=== PATIENT | female | born 1945 | race Caucasian/White ===

== ENCOUNTER → 2016-11-16 | Outpatient (CLI) | payer MEDICARE | END | disposition home or self-care (01) | LOC: PCVCCLINIC 11:10 | PROVIDERS: ATTEND Internal Medicine Cardiovascular Disease | DX: I87.2 Venous insufficiency (chronic) (peripheral) (principal); I71.4 Abdominal aortic aneurysm, without rupture; I48.0 Paroxysmal atrial fibrillation; I25.10 Atherosclerotic heart disease of native coronary artery without angina pectoris; I77.89 Other specified disorders of arteries and arterioles; I10 Essential (primary) hypertension; F17.200 Nicotine dependence, unspecified, uncomplicated; E78.1 Pure hyperglyceridemia; Z90.49 Acquired absence of other specified parts of digestive tract; Z90.710 Acquired absence of both cervix and uterus; Z79.82 Long term (current) use of aspirin; Z79.899 Other long term (current) drug therapy; Z88.5 Allergy status to narcotic agent | CPT/HCPCS: 80061; 93005; G0463; 85610 ==

== ENCOUNTER → 2017-02-12 | Outpatient (CLI) | payer MEDICARE ==
--- NOTE | 2017-02-12 13:50 | PCVCIMAG ---
EXAM: BILATERAL LOWER EXTREMITY ARTERIAL DUPLEX INDICATION: Peripheral Arterial Disease. Leg pain. FINDINGS: Right Leg: Satisfactory arterial waveforms throughout the common/profunda/superficial femoral, popliteal, anterior tibial, peroneal, and posterior tibial arteries. No flow limiting stenosis seen. Left Leg: Satisfactory arterial waveforms throughout the common/profunda/superficial femoral, popliteal, anterior tibial, peroneal, and posterior tibial arteries. No flow limiting stenosis seen. IMPRESSION: No flow limiting stenosis in the right lower extremity. No flow limiting stenosis in the left lower extremity. LOC:[id number]
== END | disposition home or self-care (01) ==
LOC: PCVCIMAG 09:34
PROVIDERS: ATTEND Internal Medicine Cardiovascular Disease
DX: I73.9 Peripheral vascular disease, unspecified (principal); I10 Essential (primary) hypertension; E78.5 Hyperlipidemia, unspecified; I25.10 Atherosclerotic heart disease of native coronary artery without angina pectoris; R09.89 Other specified symptoms and signs involving the circulatory and respiratory systems; I48.0 Paroxysmal atrial fibrillation
CPT/HCPCS: 93925

== ENCOUNTER → 2017-06-13 | Outpatient (CLI) | payer MEDICARE | END | disposition home or self-care (01) | LOC: PCVCCLINIC 13:16 | DX: I25.10 Atherosclerotic heart disease of native coronary artery without angina pectoris (principal); I71.4 Abdominal aortic aneurysm, without rupture; I48.0 Paroxysmal atrial fibrillation; I10 Essential (primary) hypertension; R00.1 Bradycardia, unspecified; I77.1 Stricture of artery; R07.9 Chest pain, unspecified; R09.89 Other specified symptoms and signs involving the circulatory and respiratory systems; F17.210 Nicotine dependence, cigarettes, uncomplicated; R94.31 Abnormal electrocardiogram [ECG] [EKG]; Z98.890 Other specified postprocedural states; Z86.79 Personal history of other diseases of the circulatory system; Z79.82 Long term (current) use of aspirin | CPT/HCPCS: 80061; 93005; G0463 ==

== ENCOUNTER → 2017-07-09 | Outpatient (CLI) | payer MEDICARE | END | disposition home or self-care (01) | LOC: PCVCIMAG 08:44 | DX: I65.23 Occlusion and stenosis of bilateral carotid arteries (principal); I25.10 Atherosclerotic heart disease of native coronary artery without angina pectoris; I49.5 Sick sinus syndrome; I10 Essential (primary) hypertension; E78.00 Pure hypercholesterolemia, unspecified; I71.4 Abdominal aortic aneurysm, without rupture; I77.9 Disorder of arteries and arterioles, unspecified; I73.9 Peripheral vascular disease, unspecified; I70.1 Atherosclerosis of renal artery; F17.200 Nicotine dependence, unspecified, uncomplicated; N28.1 Cyst of kidney, acquired; R07.9 Chest pain, unspecified; Z79.82 Long term (current) use of aspirin | CPT/HCPCS: 36415; 76770; 93005; 93325; 93351; 93880; 93975; 93978; G0463 ==

== ENCOUNTER → 2017-07-23 | Outpatient (CLI) | payer MEDICARE | END | disposition home or self-care (01) | LOC: PCVCIMAG 08:51 | DX: I25.10 Atherosclerotic heart disease of native coronary artery without angina pectoris (principal); I49.5 Sick sinus syndrome; I10 Essential (primary) hypertension; E78.00 Pure hypercholesterolemia, unspecified; I77.9 Disorder of arteries and arterioles, unspecified; I70.1 Atherosclerosis of renal artery; I73.9 Peripheral vascular disease, unspecified; I71.4 Abdominal aortic aneurysm, without rupture; F17.210 Nicotine dependence, cigarettes, uncomplicated; R06.02 Shortness of breath; Z98.890 Other specified postprocedural states; Z86.79 Personal history of other diseases of the circulatory system; Z79.82 Long term (current) use of aspirin | CPT/HCPCS: 36415; 93005; 93308; G0463 ==

== ENCOUNTER → 2018-01-28 | Outpatient (CLI) | payer MEDICARE ==
--- NOTE | 2018-01-28 17:30 | PCVCIMAG ---
EXAM: NONINVASIVE ARTERIAL EXAMINATION OF BOTH LOWER EXTREMITIES INCLUDING PRE AND POST EXERCISE PRESSURE MEASUREMENTS AND DOPPLER WAVEFORMS INDICATION: Peripheral Arterial Disease. Leg pain. FINDINGS: Right Brachial: 186 mm Hg. Right Dorsalis Pedis: 150 mm Hg. Right Posterior Tibial: 192 mm Hg. Right QUINN = 1.03. Left Brachial: 177 mm Hg. Left Dorsalis Pedis: 164 mm Hg. Left Posterior Tibial: 195 mm Hg. Left QUINN = 1.05. Post Exercise: Right Brachial 181 mm Hg. Right Posterior Tibial: 118 mm Hg. Left Posterior Tibial: 158 mm Hg. Right QUINN = 0.65. Left QUINN = tear 0.87. IMPRESSION: No resting ischemia in the right lower extremity. Mild/moderate exercise induced ischemia in the right lower extremity. No resting ischemia in the left lower extremity. Minimal exercise induced ischemia in the left lower extremity. LOC:[id number]
--- NOTE | 2018-01-28 17:31 | PCVCIMAG ---
EXAM: AORTOILIAC DUPLEX INDICATION: Abdominal aortic aneurysm. Peripheral arterial disease. FINDINGS: AORTA: Suprarenal aorta measures maximum diameter of 3.0 cm. There is a fusiform infrarenal aortic aneurysm. The infrarenal aorta measures maximum diameter of 3.8 x 3.9 cm. No aortic stenosis. RIGHT COMMON ILIAC ARTERY: Maximum diameter is 1.2 cm. No significant stenosis. RIGHT EXTERNAL ILIAC ARTERY: No significant stenosis. LEFT COMMON ILIAC ARTERY: Maximum diameter is 1.4 cm. No significant stenosis. LEFT EXTERNAL ILIAC ARTERY: No significant stenosis. IMPRESSION: 3.9 cm infrarenal abdominal aortic aneurysm unchanged in size since June 2017. Previous bilateral iliac artery stents maintaining satisfactory patency. LOC:[id number]
== END | disposition home or self-care (01) ==
LOC: PCVCIMAG 13:12
PROVIDERS: ATTEND Nuclear Medicine Nuclear Cardiology
DX: I25.10 Atherosclerotic heart disease of native coronary artery without angina pectoris (principal); E78.1 Pure hyperglyceridemia; I73.9 Peripheral vascular disease, unspecified; I77.1 Stricture of artery; I71.4 Abdominal aortic aneurysm, without rupture; E78.00 Pure hypercholesterolemia, unspecified; I10 Essential (primary) hypertension; F17.210 Nicotine dependence, cigarettes, uncomplicated; Z98.890 Other specified postprocedural states; Z86.79 Personal history of other diseases of the circulatory system; Z79.82 Long term (current) use of aspirin
CPT/HCPCS: 80061; 93005; 93923; 93978; G0463; 93924

== ENCOUNTER → 2019-01-28 | Outpatient (CLI) | payer MEDICARE ==
--- NOTE | 2019-01-28 11:13 | PCVCIMAG ---
EXAM: AORTOILIAC DUPLEX INDICATION: Peripheral arterial disease FINDINGS: AORTA: Suprarenal aorta measures maximum diameter of 3.0 cm. There is a fusiform infrarenal aortic aneurysm. The infrarenal aorta measures maximum diameter of 3.8 x 3.9 cm. No aortic stenosis. RIGHT COMMON ILIAC ARTERY: Maximum diameter is 1.2 cm. No significant stenosis. RIGHT EXTERNAL ILIAC ARTERY: No significant stenosis. LEFT COMMON ILIAC ARTERY: Maximum diameter is 1.2 cm. No significant stenosis. LEFT EXTERNAL ILIAC ARTERY: No significant stenosis. IMPRESSION: 3.9 cm infrarenal abdominal aortic aneurysm unchanged since January 2018 study. No aortoiliac stenosis. Previous bilateral iliac stents maintaining satisfactory patency. LOC:[id number]
--- NOTE | 2019-01-28 11:18 | PCVCIMAG ---
EXAM: NONINVASIVE ARTERIAL EXAMINATION OF BOTH LOWER EXTREMITIES INCLUDING PRE AND POST EXERCISE PRESSURE MEASUREMENTS AND DOPPLER WAVEFORMS INDICATION: Peripheral arterial disease. Bilateral iliac stents. FINDINGS: Right Brachial: 180 mm Hg. Right Dorsalis Pedis: 172 mm Hg. Right Posterior Tibial: 179 mm Hg. Right QUINN = 0.99. Left Brachial: 167 mm Hg. Left Dorsalis Pedis: 152 mm Hg. Left Posterior Tibial: 173 mm Hg. Left QUINN = 0.96. Post Exercise: Right Brachial 178 mm Hg. Right Posterior Tibial: 154 mm Hg. Left Posterior Tibial: 156 mm Hg. Right QUINN = 0.87. Left QUINN = 0.88. IMPRESSION: No resting ischemia in the right lower extremity. No exercise induced ischemia in the right lower extremity. No resting ischemia in the left lower extremity. No exercise induced ischemia in the left lower extremity. LOC:[id number]
== END | disposition home or self-care (01) ==
LOC: PCVCIMAG 08:18
PROVIDERS: ATTEND Internal Medicine Cardiovascular Disease
DX: I71.4 Abdominal aortic aneurysm, without rupture (principal); I73.9 Peripheral vascular disease, unspecified; F17.200 Nicotine dependence, unspecified, uncomplicated; E78.00 Pure hypercholesterolemia, unspecified; E78.1 Pure hyperglyceridemia; I10 Essential (primary) hypertension; I65.23 Occlusion and stenosis of bilateral carotid arteries; I48.0 Paroxysmal atrial fibrillation; I25.10 Atherosclerotic heart disease of native coronary artery without angina pectoris; Z79.82 Long term (current) use of aspirin; Z88.5 Allergy status to narcotic agent
CPT/HCPCS: 36415; 80061; 93005; 93924; 93978; G0463